=== PATIENT | male | born 1965 | race Caucasian/White ===

== ENCOUNTER 2018-08-11 00:45 | Day surgery (SDC) | payer OTHER ==
[~2018-08-11] VITALS: Ht 175.3 cm; Wt 98.4 kg
[~2018-08-11 00:45] MED LIST: ANTIBIOTIC; CYC10 PO; FEXO1TAB63 PO; IBUP-56 PO; LOR5/325 PO; METF-452 PO; PSEU120T69 PO
[2018-08-11] MEDS ORDERED: LIDOCAINE/SOD BICARB 8.4% SYR ID ONE (09:05)
[2018-08-11] MEDS ORDERED: NORMOSOL R SOLN(*) 1000 ML BAG 1,000 ML IV PRN (09:05)
[2018-08-11] MEDS ORDERED: PROPOFOL EMUL(*) 10MG/ML 20 ML 20 ML ONE (11:04)
[2018-08-11 12:25] VITALS: BP 155/80
[2018-08-11 13:54] VITALS: BP 98/50
[2018-08-11 14:13] VITALS: BP 119/79
[2018-08-11 14:16] VITALS: BP 114/62
== END 2018-08-11 14:22 | disposition home or self-care (01) ==
LOC: OR 00:45
PROVIDERS: ATTEND Family Medicine
DX: Z12.11 Encounter for screening for malignant neoplasm of colon (principal); E11.9 Type 2 diabetes mellitus without complications
CPT/HCPCS: 00812; 36416; 45378; 82948; J2704

== ENCOUNTER 2019-04-30 14:31 | Emergency (ER) | payer OTHER ==
[~2019-04-30 14:31] MED LIST changes: -CEPH500C24 PO; -LIDO700A19 TD; -OXYC5TAB38 PO
[2019-04-30] MEDS ORDERED: NS(*) 0.9% 1000 ML BAG 1,000 ML IV ONE (14:42)
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
[2019-04-30] MEDS ORDERED: DIPHTH/TETANUS/ACEL. PERTUSSIS IM ONE (14:45)
[2019-04-30 14:52] LABS: PLATELET COUNT, AUTOMATED 224 K/uL (150-450)
[2019-04-30 15:09] LABS: INR 0.95
[2019-04-30] MEDS ORDERED: IOPAMIDOL 76% 100 ML INFUS BTL 100 ML ONE (16:15)
[2019-04-30] MEDS ORDERED: CEPH500C24 PO (17:13)
[2019-04-30] MEDS ORDERED: OXYC5TAB38 PO (17:13)
[2019-04-30 17:14] VITALS: BP 147/102
--- NOTE | 2019-04-30 17:17 | RADIOLOGY IMAGING REPORT ---
FACILITY: [facility] PATIENT NAME: Salty Hernandez : 1965 MR: [id number] V: [id number] EXAM DATE: ORDERING PHYSICIAN: LINDA CRUZ TECHNOLOGIST: [place] [facility] [place]: [place] : 1965 Visit/Account:[id number] Date of [place]: 04/30/2019 CT BRAIN NO CONTRAST EXAMINATION: CT head/brain without contrast HISTORY: Trauma TECHNIQUE: Contiguous axial images were obtained from the skull base to the vertex without intravenou s contrast. One of the following dose optimization techniques was utilized in the performance of this exam: Autom ated exposure control; adjustment of the mA and/or kV according to the patient's size; or use of an i terative reconstruction technique. Specific details can be referenced in the facility's radiology C T exam operational policy. COMPARISON STUDIES: None FINDINGS: Ventricles/sulci/fissures: Midline in position and normal in configuration. Masses/hemorrhage/midline shift: No parenchymal hemorrhage or mass effect. White matter: No obvious white matter edema or contusion change. Liu-white differentiation: Well-maintained cortical liu matter with no cortical edema contusion or effacement noted. Extra-axial spaces: No subdural or epidural fluid collections. No subarachnoid blood. Dural venous sinuses/arterial structures: Negative Skull base/calvarium: No calvarial or skull base abnormalities. Visualized mastoid air cells/paranasal sinuses: Mastoid sphenoid and ethmoid air cells well-aerated. IMPRESSION: 1. Negative CT scan of the head for acute intracranial pathology. Report Dictated By: Rajiv Kennedy MD at 04/30/2019 4:47 PM Report E-Signed By: Rajiv Kennedy MD at 04/30/2019 5:12 PM WSN:[email or web address]
--- NOTE | 2019-04-30 17:33 | RADIOLOGY IMAGING REPORT ---
FACILITY: [facility] PATIENT NAME: Salty Hernandez : 1965 MR: [id number] V: [id number] EXAM DATE: ORDERING PHYSICIAN: LINDA CRUZ TECHNOLOGIST: Location: [facility] [place] Patient: Salty Hernandez : 1965 Visit/Account:[id number] Date of [place]: 04/30/2019 CT VERTEBRA CERVICAL (NON CON) EXAMINATION: CT cervical spine without contrast Additional pertinent history: Trauma COMPARISON STUDIES: None TECHNIQUE: Axial images were obtained from the skull base through the upper thoracic spine without IV contrast administration. Coronal and sagittal reformatted images were obtained from the axial source data. FINDINGS: Prevertebral soft tissues: Negative Alignment: Loss of the normal cervical lordosis. Kyphotic curvature centered at the C5 level. Vertebral bodies: Vertebral bodies well-maintained with respect to height. No compression deformitie s or fractures. Posterior elements: Posterior elements well-maintained alignment with no facet fracture or disruption . Disc spaces: Mild to moderate disc space loss at C5-6 level. Lesser changes at the C6-7 and 71 level s. Anterior spurring changes and smaller posterior spurring changes seen at the C 5/6 and C6-7 level s. Visualized soft tissues anterior neck: Negative Visualized lung/mediastinum: No pneumothorax. No lung contusion. Thyroid is unremarkable. No patho logic lymphadenopathy. IMPRESSION: Negative CT scan cervical spine for acute cervical pathology. Report Dictated By: Rajiv Kennedy MD at 04/30/2019 4:57 PM Report E-Signed By: Rajiv Kennedy MD at 04/30/2019 5:28 PM WSN:[email or web address]
--- NOTE | 2019-04-30 17:35 | RADIOLOGY IMAGING REPORT ---
FACILITY: [facility] PATIENT NAME: Salty Hernandez : 1965 MR: [id number] V: [id number] EXAM DATE: ORDERING PHYSICIAN: LINDA CRUZ TECHNOLOGIST: Location: [facility] Patient: Salty Hernandez : 1965 Visit/Account:[id number] Date of [place]: 04/30/2019 CT CHEST ABDOMEN PELVIS W/CON EXAMINATION: CT Chest With Contrast CT Abdomen With Contrast CT Pelvis With Contrast 04/30/2019 2:42 PM HISTORY: trauma TECHNIQUE: Spiral scan was obtained through the chest, abdomen during injection of nonionic iodinat ed intravenous contrast. Contrast: 75 mL of IV Isovue 370. One of the following dose optimization techniques was utilized in the performance of this exam: Autom ated exposure control; adjustment of the mA and/or kV according to the patient's size; or use of an i terative reconstruction technique. Specific details can be referenced in the facility's radiology C T exam operational policy. COMPARISON STUDIES: none. FINDINGS: CHEST: Lungs / pleura: No lung contusion. No pneumothorax. Bibasilar pleural thickening and interstitial r eticular lung changes noted. Mediastinum / dean: No mediastinal hemorrhage. Heart / pericardium: negative Vessels: negative Musculoskeletal / Body wall: There are minimal anterior nondisplaced rib fractures involving the righ t fifth and seventh ribs and possibly the sixth rib. There is a fracture, sixth, seventh left rib fr actures and a probable nondisplaced anterior fourth rib. No thoracic compression deformities or fractures. Posterior elements well-maintained and aligned wit h no facet fracture or disruption. Previous partial left eighth rib resection. Lymph node assessment: negative Lower neck: negative ABDOMEN AND PELVIS: Liver / biliary: No acute liver pathology. No liver laceration. No perihepatic fluid. Gallbladder unremarkable. Fatty infiltrative changes within the liver. Pancreas: No pancreatic pathology noted. No splenic laceration or perisplenic fluid. Spleen: negative Adrenal glands: negative Kidneys / retroperitoneum: No renal laceration or perinephric fluid. Pelvic structures: negative Bowel / peritoneum / mesenteries: Visualized bowel demonstrates, no bowel edema or interloop fluid. No bowel inflammation. Appendix normal. Vessels: negative Musculoskeletal / Body wall: No lumbar fracture. Sacrum is well-maintained. Visualized pelvis and b oth hips are intact and well maintained. Lymph node assessment: negative IMPRESSION: 1. Nondisplaced anterior right fifth and seventh ribs, and possibly the anterior sixth rib. Slightl y offset fractures of the left anterior fifth sixth and seventh ribs and a nondisplaced anterior four th rib. 2.No intra-abdominal or pelvic pathology. Report Dictated By: Rajiv Kennedy MD at 04/30/2019 4:57 PM Report E-Signed By: Rajiv Kennedy MD at 04/30/2019 5:30 PM WSN:[email or web address]
[2019-04-30] MEDS ORDERED: LIDOCAINE 5% PATCH TP SCH (17:40)
[2019-04-30] MEDS ORDERED: LIDO700A19 TD (17:41)
[2019-04-30] MEDS ORDERED: PATCH REMOVAL 1 EA TP SCH (21:00)
== END 2019-04-30 18:15 | disposition home or self-care (01) ==
LOC: ER 14:46
DX: S22.41XA Multiple fractures of ribs, right side, initial encounter for closed fracture (principal); S51.812A Laceration without foreign body of left forearm, initial encounter
CPT/HCPCS: 12006; 36415; 70450; 71260; 72125; 74177; 80320; 81001; 83605; 83690; 85025; 85610; 85730; 90715; 96372; 99001; 99284; J7030; Q9967; 82040; 82247; 82310; 82374; 82435; 82565; 82947; 84075; 84132; 84155; 84295; 84450; 84460; 84520; 90471

== ENCOUNTER → 2019-04-30 | Outpatient (CLI) | payer OTHER ==
[~2019-04-30] MED LIST changes: +CEPH500C24 PO; +LIDO700A19 TD; +OXYC5TAB38 PO
== END ==
LOC: AMB 14:06
PROVIDERS: ATTEND Nurse Practitioner
DX: S51.812A Laceration without foreign body of left forearm, initial encounter (principal); R07.81 Pleurodynia; S61.412A Laceration without foreign body of left hand, initial encounter; V43.52XA Car driver injured in collision with other type car in traffic accident, initial encounter
CPT/HCPCS: A0425; A0427

== ENCOUNTER → 2019-05-29 | Outpatient (CLI) | payer OTHER ==
[~2019-05-29] MED LIST changes: +CEPH500C24 PO; +LIDO700A19 TD; +OXYC5TAB38 PO
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
== END ==
LOC: RAD 10:43
PROVIDERS: ATTEND Family Medicine
DX: M25.551 Pain in right hip (principal); M25.561 Pain in right knee